=== PATIENT | female | born 1960 | race Caucasian/White ===

== ENCOUNTER 2018-04-24 07:31 | Day surgery (SDC) | payer BC ==
[2018-04-15 13:10] VITALS: BMI 29.2
[2018-04-24] MEDS ORDERED: MIDAZOLAM HCL 2 MG/2 ML SINGLE DOSE VIAL ONE (10:20)
[2018-04-24] MEDS ORDERED: ONDANSETRON 4 MG/2 ML VIAL IVPUSH PRN (11:05)
[2018-04-24] MEDS ORDERED: oxyCODONE HCL 5 MG TABLET PO PRN (11:05)
[2018-04-24] MEDS ORDERED: LACTATED RINGERS SOLUTION 1,000 ML IV SCH (11:15)
--- NOTE | 2018-04-24 11:29 | PN ---
Progress Note (short form) - Note Progress Note: 58F s/p right wrist open carpal tunnel release POD #0. -Pain control: Percocet, Celebrex ordered to pharmacy for analgesia; OK to use OTC NSAID's instead. -Incentive spirometry. -STRICT NWB RUE. -Keep dressing clean & dry. -Elevate wrist/hand above level of heart. -Discharge home: f/u [facility] [place] [facility] Fri05/01/2018; call for appointment: . Santhosh Ray MD (Orthopaedic Surgery).
--- NOTE | 2018-04-24 11:30 | OP ---
Operative Note - Note: Operative Date: 04/24/18 Pre-Operative Diagnosis: Right wrist/hand carpal tunnel syndrome Operation: Right open carpal tunnel release Post-Operative Diagnosis: Same as Pre-op Surgeon: Santhosh Ray Anesthesiologist/STEEL BURNER: Gregory Egan Anesthesia: General Estimated Blood Loss (mls): 0 Fluid Volume Replaced (mls): 500 (Cyrstalloid) Operative Report Dictated: Yes
[2018-04-24 12:48] VITALS: TEMP 97.7
--- NOTE | 2018-04-24 12:58 | OP ---
DATE OF OPERATION: 04/24/2018 SURGEON: Santhosh Ray MD PREOPERATIVE DIAGNOSIS: Carpal tunnel syndrome on the right. POSTOPERATIVE DIAGNOSIS: Right carpal tunnel syndrome. OPERATION PERFORMED: Right carpal tunnel release. ANESTHESIA: General. OPERATION IN DETAIL: The patient was correctly identified and brought in the operating room. The right upper limb was prepped, free draped in the routine manner with Betadine scrub solution, wiped with alcohol, and DuraPrep was applied. On the bloodless field, the hand in a volar position, incision was made in the primary crease, but biased towards the ulnar aspect in line with palmaris longus. Dissection was taken through the skin. The palmar aponeurosis was split longitudinally. The flexor retinaculum of the carpal tunnel was then easily exposed and noted, and an incision into carpal tunnel flexor retinaculum made to free the underlying tunnel and appropriate neural and tendon elements. A Littler scissors was placed with the blades of the scissors within the confines of the sleeve of the flexor retinaculum, and this was advanced towards the arch vessels of the palm and proximally just proximal to the actual volar crease into the fascia of the forearm freeing the entire carpal tunnel completely. My finger was able to replace into the carpal tunnel and easily into the proximal and distal ends of the release sites. The wounds were thoroughly lavaged. Bipolar Bovie was utilized to stop some bleeders. The skin was closed with 3-0 nylon vertical mattress sutures. Light bandage supplied. Santhosh Ray MD [id number]
[2018-04-24 13:25] VITALS: BP 124/71; PULSE 63
[2018-04-25] MEDS ORDERED: CHOLECALCIFEROL (VITAMIN D3) 1,000 UNIT TABLET (FP) PO SCH (10:00)
== END 2018-04-24 13:27 | disposition home or self-care (01) ==
LOC: FASU 07:31
PROVIDERS: ATTEND Orthopaedic Surgery Orthopaedic Surgery of the Spine
PROC: 01N50ZZ Release Median Nerve, Open Approach (ICD-10-PCS; principal; 2018-04-24 11:15)
DX: G56.01 Carpal tunnel syndrome, right upper limb (principal)
CPT/HCPCS: 94760